=== PATIENT | male | born 1955 | race Caucasian/White ===

== ENCOUNTER 2022-09-10 06:19 | Day surgery (SDC) | payer MEDICARE, OTHER ==
[~2022-09-10 06:19] MED LIST: Lactated Ringers 1,000 ML IV SCH; Sodium Chloride 0.9% 10 ML Syringe FLUSH PRN
[2022-09-10] MEDS ORDERED: Propofol 200 MG/20 ML SDV IV ONE ×2 (06:20)
[2022-09-10] MEDS ORDERED: Lidocaine 2% 5 ML SDV IV ONE (06:20)
[2022-09-10] MEDS ORDERED: Simethicone Drops 40 MG/0.6 ML 30 ML Bottle PO ONE (07:26)
== END 2022-09-10 08:55 | disposition home or self-care (01) ==
LOC: FB.SDS 06:19
PROVIDERS: ATTEND Surgery
DX: Z12.11 Encounter for screening for malignant neoplasm of colon (principal); D12.6 Benign neoplasm of colon, unspecified; K57.30 Diverticulosis of large intestine without perforation or abscess without bleeding; I10 Essential (primary) hypertension; F41.9 Anxiety disorder, unspecified; E78.5 Hyperlipidemia, unspecified; E66.01 Morbid (severe) obesity due to excess calories; E11.9 Type 2 diabetes mellitus without complications; L98.9 Disorder of the skin and subcutaneous tissue, unspecified; F17.220 Nicotine dependence, chewing tobacco, uncomplicated; Z79.899 Other long term (current) drug therapy; Z68.41 Body mass index [BMI] 40.0-44.9, adult; Z88.0 Allergy status to penicillin; Z88.8 Allergy status to other drugs, medicaments and biological substances
CPT/HCPCS: 00812; 45385; 88305; A9270; J2704; J7120